=== PATIENT | male | born 1970 | race Caucasian/White ===

== ENCOUNTER 2024-06-21 12:37 | Observation (INO) | payer OTHER, SELFPAY ==
[2024-06-21] VITALS (10 sets, daily range): BP systolic 106–123; BP diastolic 73–94; PULSE 66–88; RESP 12–20; TEMP 36.6–37.2; O2SAT 90–95; BMI 26.6; BMI 26.5
--- NOTE | 2024-06-21 14:03 | ED.NAVMDI ---
HPI - Nausea/Vomiting/Diarrhea General Chief complaint: Nausea/Vomiting Stated complaint: Nausea coming from [facility] Time Seen by Provider: 06/21/24 12:39 History of Present Illness HPI Narrative: This 54-year-old male has a history of throat cancer and is undergoing chemotherapy currently. It is and unresectable tumor. He came from infusion clinic today and had denied IV fluids there. He states he has nausea and does not feel well. He has lost 13 kg over the last month or so. He does not eat much and reports generalized weakness. He arrives here with normal vital signs. Related Data Home Medications ?Medication ?Instructions ?Recorded ?Confirmed ondansetron HCl 8 mg tablet 8 mg PO Q8H PRN 04/14/24 06/21/24 polyethylene glycol 3350 17 gram 17 g PO QDAY PRN 04/14/24 06/07/24 oral powder packet (Miralax) prochlorperazine maleate 10 mg 10 mg PO Q8H PRN 04/14/24 05/31/24 tablet oxycodone 5 mg tablet 5 mg PO Q4-6H PRN 05/20/24 06/21/24 Previous Rx's ?Medication ?Instructions ?Recorded potassium chloride 20 mEq 20 meq PO QDAY #7 tabs 06/06/24 tablet,extended release Allergies Allergy/AdvReac Type Severity Reaction Status Date / Time No Known Drug Allergies Allergy Verified 06/21/24 12:51 Review of Systems Status of ROS: Reports: 10 or more systems reviewed and unremarkable except as noted in History and below Narrative: Constitutional: No fevers, no weight gain or loss. Eyes: No discharge. No vision changes. HENT: No congestion, no sore throat, no ear pain. Cardiovascular: No chest pain, no palpitations. Respiratory: No shortness of breath, no wheezes, no cough. Gastrointestinal: No abdominal pain, no diarrhea. Genitourinary: No dysuria, no hematuria. Musculoskeletal: Normal range of motion. Skin: No rashes, no pruritis. Neurological: No dizziness, sensory change, speech change. Generalized weakness. Endo/Heme/Allergies: No bruising or bleeding. No polydipsia. Pysch: no suicidality, no anxiety, no insomnia. All other systems reviewed and are negative. [facility] Medical History (Updated 06/21/24 @ 15:19 by Nav Ortiz MD) Sleep apnea ?G47.30 - Sleep apnea, unspecified (ICD-10) Diverticulosis ?K57.90 - Diverticulosis of intestine, part unspecified, without perforation or abscess without bleeding (ICD-10) HTN (hypertension) ?I10 - Essential (primary) hypertension (ICD-10) Cancer of oropharynx ?C10.9 - Malignant neoplasm of oropharynx, unspecified (ICD-10) Surgical History (Updated 06/01/24 @ 14:05 by Emeli Koo APRN) H/O hand surgery ?Z98.890 - Other specified postprocedural states (ICD-10) History of colon surgery ?Z98.890 - Other specified postprocedural states (ICD-10) Social History Smoking Status: Former smoker Non-prescribed substance use: denies use Exam Narrative: Exam Narrative: Constitutional: No acute distress. HEENT: Normocephalic, atraumatic. Neck: Normal range of motion. Nontender. Supple. Heart: Regular. No murmurs. Normal rate. Intact distal pulses. Lungs: Clear to auscultation. No chest discomfort. No wheezes, rhonchi, or rales. Abdomen: Normal bowel sounds. Nontender. No rebound tenderness. Genitalia: Deferred. Back: No midline tenderness. Normal range of motion. Extremities: Normal range of motion. No injury. Skin: Intact. No rash. Warm. No erythema or pallor. Neurologic: No altered sensation. No weakness. Alert and oriented. Psychiatric: No suicidality. No anxiety or depression. No insomnia. Nursing notes and vitals signs are reviewed. Const: Vital Signs, click to edit/add: Vital Signs - 24 hr 06/21/24 12:47 06/21/24 14:17 Temperature 97.9 F Pulse Rate [Pulse Oximeter] 80 80 Respiratory Rate 12 14 Blood Pressure [Ri ght Upper Arm] 115/80 Pulse Oximetry 93 94 Oxygen Delivery Me thod Room Air Room Air Course Vital Signs Vital signs: Initial Vital Signs Temperature 97.9 F 06/21/24 12:47 Temperature Source Temporal Artery Scan 06/21/24 12:47 Pulse Rate 80 06/21/24 12:47 Respiratory Rate 12 06/21/24 12:47 Blood Pressure 115/80 06/21/24 12:47 Blood Pressure Mean 91 06/21/24 12:47 Blood Pressure Position Sitting 06/21/24 12:47 Pulse Oximetry 93 06/21/24 12:47 Oxygen Delivery Method Room Air 06/21/24 12:47 Vital Signs Temperature 97.9 F 06/21/24 12:47 Pulse Rate 80 06/21/24 12:47 Respiratory Rate 12 06/21/24 12:47 Blood Pressure 115/80 06/21/24 12:47 Pulse Oximetry 93 06/21/24 12:47 Oxygen Delivery Method Room Air 06/21/24 12:47 Temperature 97.9 F 06/21/24 12:47 Pulse Rate 80 06/21/24 14:17 Respiratory Rate 14 06/21/24 14:17 Blood Pressure 115/80 06/21/24 12:47 Pulse Oximetry 94 06/21/24 14:17 Oxygen Delivery Method Room Air 06/21/24 14:17 Medications Administered Medications: Discontinued Medications Generic Name Dose Route Start Last Admin Trade Name Freq PRN Reason Stop Dose Admin Dexamethasone 10 mg 06/21/24 13:56 06/21/24 14:10 Dexamethasone 4 Mg/Ml Vial IV 06/21/24 13:57 10 mg ONCE ONE Administration Hydromorphone HCl 0.5 mg 06/21/24 13:56 06/21/24 14:14 Hydromorphone 0.5 Mg/0.5 Ml Inj IVP 06/21/24 13:57 0.5 mg ONCE ONE Administration Hydromorphone HCl 0.5 mg 06/21/24 14:55 06/21/24 15:13 Hydromorphone 0.5 Mg/0.5 Ml Inj IVP 06/21/24 14:56 0.5 mg ONCE ONE Administration Dextrose/Sodium Chloride 1,000 mls @ 1,000 mls/hr 06/21/24 13:56 06/21/24 14:08 5 % Dextrose/0.45% Sod Chlor IV 06/21/24 14:55 1,000 mls/hr .Q1H ONE Administration Ondansetron HCl 4 mg 06/21/24 13:56 06/21/24 14:13 Ondansetron 2 Mg/Ml Inj IVP 06/21/24 13:57 4 mg ONCE ONE Administration Potassium Chloride 20 meq 06/21/24 14:34 06/21/24 15:04 Potassium Chloride 10 Meq Capsule Er PO 06/21/24 14:35 Not Given ONCE ONE MDM - Nausea/Vomiting/Diarrhea MDM Narrative Medical decision making narrative: This patient has throat cancer and reports increased weakness today and generalized malaise. He was taking a fentanyl patch and discontinued that today and took OxyContin instead. An IV was established here where he did receive Dilaudid 0.5 mg. This was not sufficient to manage his pain and so another dose was given. The patient also received a L of D5 half-normal saline and labs are acquired. His potassium returns a bit low at 3.0. He did not want to take any oral potassium. The patient is requesting admission into the hospital least overnight because of these symptoms. I did speak with Dr. Jacobo who agrees with this plan. Lab Data Labs: Lab Results 06/21/24 Range/Units 13:55 WBC 3.60 L (4.50-11.00) K/uL RBC 3.77 L (4.30-5.90) m/uL Hgb 11.7 L (13.5-17.5) gm/dL Hct 34.4 L (37.0-53.0) % MCV 91 (80-100) fL MCH 31 (26-34) pg MCHC 34 (32-36) gm/dL RDW Coeff of Joceline 13.6 (11.5-15.5) % Plt Count 157 (140-440) K/uL Neut % (Auto) 79.1 H (42.0-72.0) % Lymph % (Auto) 5.3 L (20-44) % Reynolds % (Auto) 13.1 H (0.0-11.0) % Eos % (Auto) 0.8 (0.0-7.0) % Baso % (Auto) 0.6 (0.0-3.0) % Neut # (Auto) 2.80 (1.7-7.0) K/uL Lymph # (Auto) 0.20 L (0.90-2.90) K/uL Reynolds # (Auto) 0.50 (0.00-0.90) K/UL Eos # (Auto) 0.00 (0.00-0.50) K/uL Baso # (Auto) 0.00 (0.00-0.30) K/uL Abs Immat Gran (auto) 0.00 (0.00-0.30) K/uL Imm/Tot Granulo (auto) 1.1 % Sodium 137 (135-149) mmol/L Potassium 3.0 L (3.6-5.1) mmol/L Chloride 94 L (96-114) mmol/L Carbon Dioxide 30 (20-32) mmol/L Anion Gap 13 (7-15) mEq/L BUN 18 (7-30) mg/dL Creatinine 0.8 (0.5-1.5) mg/dL Estimated Creat Clear 106.79 Estimated GFR 106 ml/min Glucose 83 (60-115) mg/dL Calcium 8.9 (8.4-10.6) mg/dL Discharge Plan 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 do not crush tablet. ondansetron HCl 8 mg tablet 8 mg PO Q8H PRN polyethylene glycol 3350 [Miralax] 17 gram powder in packet 17 g PO QDAY PRN Hold Instructions: NOT USING AT THIS TIME prochlorperazine maleate 10 mg tablet 10 mg PO Q8H PRN oxycodone 5 mg tablet 5 mg PO Q4-6H PRN Follow Up/Referrals: Provider,Not a Local [Primary Care Provider] -
[2024-06-21] MEDS: 5 % DEXTROSE/0.45% SOD CHLOR 1,000 ML 1000 ML IV (14:08)
[2024-06-21] MEDS: dexAMETHasone 4 MG/ML VIAL 10 MG IV (14:10)
[2024-06-21] MEDS: ONDANSETRON 2 MG/ML inj 4 MG IVP (14:13)
[2024-06-21] MEDS: HYDROmorphone 0.5 mg/0.5 ml inj IVP ×7 (14:14→21:52)
[2024-06-21 14:22] LABS: Chloride* 94 mmol/L (96-114)
[2024-06-21 14:23] LABS: Sodium* 137 mmol/L (135-149)
[2024-06-21 14:25] LABS: Creatinine* 0.8 mg/dL (0.5-1.5); Est. Creatinine Clearance* 106.79; Estimated Glomerular Filt Rate 106 ml/min
[2024-06-21 14:26] LABS: Anion Gap 13 mEq/L (7-15); Basophils Percent Auto 0.6 % (0.0-3.0); Blood Urea Nitrogen* 18 mg/dL (7-30); Calcium* 8.9 mg/dL (8.4-10.6); Carbon Dioxide* 30 mmol/L (20-32); Eosinophils Percent Auto 0.8 % (0.0-7.0); Glucose* 83 mg/dL (60-115); Hematocrit 34.4 % (37.0-53.0); Hemoglobin* 11.7 gm/dL (13.5-17.5); Immature Granulocytes Pct Auto 1.1 %; Lymphocytes Percent Auto 5.3 % (20-44); Mean Corpuscular HGB Conc 34 gm/dL (32-36); Mean Corpuscular Hemoglobin 31 pg (26-34); Mean Corpuscular Volume 91 fL (80-100); Monocytes Percent Auto 13.1 % (0.0-11.0); Neutrophils Percent Auto 79.1 % (42.0-72.0); Platelet Count* 157 K/uL (140-440); RDW Coefficient of Variation % 13.6 % (11.5-15.5); Red Blood Count 3.77 m/uL (4.30-5.90)
[2024-06-21 14:28] LABS: Slide Review Reflex No
[2024-06-21] MEDS: POTASSIUM CHLORIDE 10 MEQ/100 ML PIGGYBACK 100 MEQ IVPB (17:38)
[2024-06-21] MEDS: 0.9 % SODIUM CH + KCL 20 mEq/L 1,000 ML 125 ML IV (17:38)
[2024-06-21] MEDS: OXYCODONE 5 MG TABLET PO (17:46)
[2024-06-21] MEDS: ONDANSETRON ODT 4 MG TAB 8 MG PO (17:48)
[2024-06-21 18:31] LABS: Magnesium* 1.7 mg/dL (1.5-2.6); Phosphorus* 3.9 mg/dL (2.5-4.5)
[2024-06-21] MEDS: POTASSIUM CHLORIDE 10 MEQ/100 ML PIGGYBACK 50 MEQ IVPB (18:49)
--- NOTE | 2024-06-21 19:13 | PC.NURSE ---
End of Shift: Patient unpleasant upon admission, but since then has became nicer. Patient vitally stable, lungs clear, BS WNL, IV running fluids at 125. Patient independent in room. Patient rates throat pain 8-10, 10 mg of oxy given once and 1mg of dilauded given x3. Patient currently on 0.5 L NC in low 90's and patient desats on and off as low as 83%. Patient declines all other pain meds other than oxy and dilauded, as he can't swallow anything more than oxy. Four mg of zophran given for nausea. Tele=NSR.
--- NOTE | 2024-06-21 19:34 | P.IMHP_ITS ---
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 His is a PA at [employer] and is here with him today. She helps to give history. She tells me that he has not eaten anything for several weeks and has been only drinking water and some Gatorade. He has lost 13 kg in the last month. I note that his weight on 05/03/2024 was 103 kg. Today his weight is 81 kg. He says that he does get in a small cup of yogurt every morning, but that is the only food that he eats for the whole day. He knows that he needs nutrition to help him heal and to feel well, but he just can not think about eating because he has too much pain. He recently started a fentanyl patch at 50 mcg, but did not receive much pain control from this and so was increased to 75 mcg. He only tolerated that for about 24 hours and then took everything off because he did not like how the 75 mcg patch was making him feel. He is adamant that he will not agree to starting fentanyl ever again. Since taking that off he has been feeling more and more painful despite continuing to use oral oxycodone. He is having trouble swallowing because it is so painful to do so. He has also become weaker in the last few days. His tells me that he has been somewhat confused in the last few days. Nadeem denies this. As far as treatment for cancer goes, he is finished with chemo radiation and will wait 6 weeks before getting reimaging. Review of Systems Status of ROS: Reports: 10 or more systems reviewed and unremarkable except as noted in History and below [facility] Medical History (Updated 06/22/24 @ 00:21 by Chloé Jacobo MD) Sleep apnea ?G47.30 - Sleep apnea, unspecified (ICD-10) Diverticulosis ?K57.90 - Diverticulosis of intestine, part unspecified, without perforation or abscess without bleeding (ICD-10) HTN (hypertension) ?I10 - Essential (primary) hypertension (ICD-10) Cancer of oropharynx ?C10.9 - Malignant neoplasm of oropharynx, unspecified (ICD-10) Surgical History (Updated 06/21/24 @ 19:38 by Chloé Jacobo MD) H/O hand surgery ?Z98.890 - Other specified postprocedural states (ICD-10) History of colon surgery ?Z98.890 - Other specified postprocedural states (ICD-10) Social History (Updated 06/21/24 @ 19:38 by Chloé Jacobo MD) Narrative: , his , Amanda, is here with him today and helps to give a history. Removed history of tobacco use. Denies alcohol use. Denies illicit drug use. What is your current living situation?: I presently have a place to live Problems where you live: no known problems Problems where you live details: none In the past 12 months, utilities in danger of being shut off: no In past 12 months, lack of transportation kept you from medical appts, meetings, work, or getting things needed for daily living: no In the past 12 mos, have been you worried that your food would run out before you had money to buy more?: never true In the past 12 mos, the food you bought just didn't last and you didn't have money to buy more?: never true Highest level of school completed/degree received: high school graduate Smoking Status: Former smoker How often do you have a drink containing alcohol: never AUDIT-C Alcohol total score: 0 Non-prescribed substance use: denies use Caffeine: No How often does anyone, including family, friends and others, physically hurt you : never How often does anyone, including family, friends and others, insult or talk down to you: never How often does anyone, including family, friends and others, threaten you with harm: never How often does anyone, including family, friends and others, scream or curse at you: never service: No Meds Home Medications and Allergies Home Medications ?Medication ?Instructions ?Recorded ?Confirmed ?Type ondansetron HCl 8 mg tablet 8 mg PO Q8H PRN 04/14/24 06/21/24 History prochlorperazine maleate 10 mg 10 mg PO Q6H PRN 04/14/24 06/21/24 History tablet oxycodone 5 mg tablet 5 - 10 mg PO Q4-6H PRN 05/20/24 06/21/24 History Allergies Allergy/AdvReac Type Severity Reaction Status Date / Time No Known Drug Allergies Allergy Verified 06/21/24 12:51 Exam Narrative: Exam Narrative: General: No acute distress. Eyes are closed, but he is awake, alert, oriented. Following commands, does open his eyes upon command and sometimes spontaneously to look at the while I am talking with him or examining him, but mostly keeps them closed. HEENT: Normocephalic atraumatic, pupils equally round and reactive to light and accommodation. Oropharynx patches of large flat ulcerations and ecchymosis. No white patches or induration. No exudate. Mucous membranes are dry. No cervical lymphadenopathy, thyromegaly or carotid bruits. No JVD. Cardiovascular: Regular rate and rhythm. No murmurs, gallops, or rubs. Chest: No increased work of breathing. Clear to auscultation bilaterally. No crackles or wheezes. Abdomen: Bowel sounds present. Soft, nondistended, nontender. No hepatosplenomegaly or masses. Extremities: No edema, no cyanosis or clubbing. Skin: Radiation dermatitis on the skin folds of the neck anteriorly. No jaundice, no pallor, no other rashes on visible skin. Neuro: No facial droop. Const: Vital Signs, click to edit/add: Vital Signs - 24 hr 06/21/24 12:47 06/21/24 14:17 06/21/24 15:20 Temperature 97.9 F Pulse Rate [Pulse Oximeter] 80 80 88 Respiratory Rate 12 14 14 Blood Pressure [Le ft Arm] Blood Pressure [Ri ght Upper Arm] 115/80 123/83 Pulse Oximetry 93 94 92 Oxygen Delivery Me thod Room Air Room Air Room Air 06/21/24 15:53 06/21/24 16:20 06/21/24 16:38 Temperature 98.9 F Pulse Rate [Pulse Oximeter] 76 74 Respiratory Rate 20 Blood Pressure [Le ft Arm] 106/73 Blood Pressure [Ri ght Upper Arm] Pulse Oximetry 92 92 92 Oxygen Delivery Il thod Room Air Room Air 06/21/24 17:52 Temperature Pulse Rate [Pulse Oximeter] Respiratory Rate Blood Pressure [Le ft Arm] Blood Pressure [Ri ght Upper Arm] Pulse Oximetry 90 Oxygen Delivery Il thod Hospitalist - H&P: Result Labs Labs: Short CBC 06/21/24 Range/Units 13:55 WBC 3.60 L (4.50-11.00) K/uL Hgb 11.7 L (13.5-17.5) gm/dL Hct 34.4 L (37.0-53.0) % Plt Count 157 (140-440) K/uL [facility] 06/21/24 13:55 Sodium 137 Potassium 3.0 L Chloride 94 L Carbon Dioxide 30 BUN 18 Creatinine 0.8 Glucose 83 Calcium 8.9 Assessment and Plan Assessment and plan (1) Intractable pain: Problem comment: - secondary to throat cancer and recent radiation treatment. I think he would benefit from a long-acting opioid, but he does not want to do anything like that considering his recent experience with fentanyl. 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 Will treat with magic mouthwash, omeprazole, acetaminophen, ibuprofen, oxycodone, and hydromorphone for breakthrough pain. He also got dexamethasone in the emergency department. Status: Acute (4) Radiation dermatitis: Problem comment: Neck Status: Acute (5) Nausea & vomiting: Problem comment: - secondary to chemotherapy - he got dexamethasone in the emergency department and I will continue with as needed ondansetron and prochlorperazine. Will also add omeprazole. Status: Acute (6) Dehydration: Problem comment: - he got fluid bolus in the emergency department and I have continued with maintenance fluids. Encourage oral intake. Status: Acute (7) Hypokalemia: Problem comment: Give potassium replacement. I note magnesium today is 1.7. Recheck in the morning. Status: Acute (8) Leukopenia due to antineoplastic chemotherapy: Problem comment: Monitor. Status: Acute (9) Anemia due to antineoplastic agent: Problem comment: No indication for transfusion at this time. Monitor. Status: Acute (10) Weakness: Problem comment: I think this is likely secondary to dehydration and protein calorie malnutrition. I have encouraged using nutritional supplementation, but patient is hesitant to do so. He also declines nutritional consultation or feeding tube. He has a history of partial colon resection and says that there was so much mesh in his belly that he is worried about getting a PEG. Status: Acute (11) Weight loss: Problem comment: - suspect this is multifactorial due to cancer and markedly decreased oral intake - I discussed nutrition with him and how he will need protein, electrolytes, and calories to heal and to maintain strength. He was still unwilling to increase his oral intake at this time due to pain and feeling generally unwell. - start nutrition supplements. Patient that he would do better with clear liquids, so I ordered Ensure Clear Status: Acute
[2024-06-21] MEDS: EMOLLIENT BASE CREAM 1 APPLIC TOPICAL (20:29)
[2024-06-21] MEDS: SODIUM CHLORIDE 0.9 % (FLUSH) 10 ML SYRINGE 5 ML IVF ×2 (20:30→21:52)
[2024-06-22] MEDS: HYDROmorphone 0.5 mg/0.5 ml inj IVP ×5 (02:17→07:53)
[2024-06-22] MEDS: SODIUM CHLORIDE 0.9 % (FLUSH) 10 ML SYRINGE 5 ML IVF ×3 (02:17→04:37)
[2024-06-22] MEDS: ONDANSETRON ODT 4 MG TAB 8 MG PO (02:18)
[2024-06-22] MEDS: 0.9 % SODIUM CH + KCL 20 mEq/L 1,000 ML 125 ML IV ×2 (02:27→08:57)
[2024-06-22] MEDS: OXYCODONE 5 MG TABLET PO (02:54)
[2024-06-22 03:00] VITALS: BP 127/87; PULSE 62; RESP 20; TEMP 36.4; O2SAT 95
[2024-06-22] MEDS: PROCHLORPERAZINE 10 MG TABLET PO (04:36)
--- NOTE | 2024-06-22 04:52 | PC.NURSE ---
Shift note: Pt continue to complain of throat pain of 8t
--- NOTE | 2024-06-22 04:59 | PC.NURSE ---
Addendum entered by Dmitri Hall RN 06/22/24 05:42: Pt want always want to take deluded 1mg and oxycodone 10mg together whenever he request for pain medication. Pt educated on the effect of taking both medications at the dose together but appeared not understand. MD and charge nurse informed. MD asked to spaced the at least 15 minutes apart when due to be given. Original Note: Shift note: Pt continue to complain of throat pain of 8-10. Pain and burning worse when swallowing. He consistently requested requested PRN medication at least every 2 hours. Pt is alert and oriented. Pt has been on 0.5L oxygen but O2 desaturate to 80s when pt sleep. Ambulated with SBA. At 0230, pt requested for ensure but was drank less that 20ml. He said the ensure burn his throat.
[2024-06-22 06:32] LABS: Basophils Percent Auto 0.7 % (0.0-3.0); Eosinophils Percent Auto 0.7 % (0.0-7.0); Hemoglobin* 10.6 gm/dL (13.5-17.5); Immature Granulocytes Pct Auto 0.3 %; Lymphocytes Percent Auto 6.8 % (20-44); Mean Corpuscular HGB Conc 34 gm/dL (32-36); Mean Corpuscular Hemoglobin 31 pg (26-34); Mean Corpuscular Volume 92 fL (80-100); Monocytes Percent Auto 16.2 % (0.0-11.0); Neutrophils Percent Auto 75.3 % (42.0-72.0); Platelet Count* 127 K/uL (140-440); RDW Coefficient of Variation % 13.4 % (11.5-15.5); Red Blood Count 3.38 m/uL (4.30-5.90); White Blood Count* 2.96 K/uL (4.50-11.00)
[2024-06-22 06:35] LABS: Slide Review Reflex No
[2024-06-22 06:44] LABS: Chloride* 99 mmol/L (96-114)
[2024-06-22 06:45] LABS: Potassium* 3.9 mmol/L (3.6-5.1); Sodium* 135 mmol/L (135-149)
[2024-06-22 06:47] LABS: Creatinine* 0.7 mg/dL (0.5-1.5); Est. Creatinine Clearance* 122.04; Estimated Glomerular Filt Rate 110 ml/min
[2024-06-22 06:48] LABS: Anion Gap 8 mEq/L (7-15); Blood Urea Nitrogen* 17 mg/dL (7-30); Calcium* 8.6 mg/dL (8.4-10.6); Carbon Dioxide* 28 mmol/L (20-32); Glucose* 96 mg/dL (60-115)
[2024-06-22 07:00] VITALS: BP 124/90; PULSE 79; RESP 18; TEMP 37.2; O2SAT 98
[2024-06-22] MEDS: HYDROmorphone 0.5 mg/0.5 ml inj 1 MG IVP (09:25)
--- NOTE | 2024-06-22 09:40 | PM.DS1 ---
DS: Providers Provider Date of admission: 06/21/24 16:03 Primary care physician: Not a Local Provider Admitting Clinician: Chloé Jacobo MD Attending Physician on discharge: Vivi Singh MD DS: Diagnosis Discharge Diagnosis (1) Intractable pain: Status: Acute Problem details: - secondary to throat cancer and recent radiation treatment. I think he would benefit from a long-acting opioid, but he does not want to do anything like that considering his recent experience with fentanyl. 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 Will treat with magic mouthwash, omeprazole, acetaminophen, ibuprofen, oxycodone, and hydromorphone for breakthrough pain. He also got dexamethasone in the emergency department. (4) Radiation dermatitis: Status: Acute Problem details: Neck (5) Nausea & vomiting: Status: Acute Problem details: - secondary to chemotherapy - he got dexamethasone in the emergency department and I will continue with as needed ondansetron and prochlorperazine. Will also add omeprazole. (6) Dehydration: Status: Acute Problem details: - he got fluid bolus in the emergency department and I have continued with maintenance fluids. Encourage oral intake. (7) Hypokalemia: Status: Acute Problem details: Give potassium replacement. I note magnesium today is 1.7. Recheck in the morning. (8) Leukopenia due to antineoplastic chemotherapy: Status: Acute Problem details: Monitor. (9) Anemia due to antineoplastic agent: Status: Acute Problem details: No indication for transfusion at this time. Monitor. (10) Weakness: Status: Acute Problem details: I think this is likely secondary to dehydration and protein calorie malnutrition. I have encouraged using nutritional supplementation, but patient is hesitant to do so. He also declines nutritional consultation or feeding tube. He has a history of partial colon resection and says that there was so much mesh in his belly that he is worried about getting a PEG. (11) Weight loss: Status: Acute Problem details: - suspect this is multifactorial due to cancer and markedly decreased oral intake - I discussed nutrition with him and how he will need protein, electrolytes, and calories to heal and to maintain strength. He was still unwilling to increase his oral intake at this time due to pain and feeling generally unwell. - start nutrition supplements. Patient that he would do better with clear liquids, so I ordered Ensure Clear DS: Summary Time Spent with Patient Time attestation: Total time spent providing and/or coordinating discharge services: Exam Const: Vital Signs, click to edit/add: Vital Signs - 24 hr 06/21/24 12:47 06/21/24 14:17 06/21/24 15:20 Temperature 97.9 F Pulse Rate Pulse Rate [Pulse Oximeter] 80 80 88 Respiratory Rate 12 14 14 Blood Pressure [Le ft Arm] Blood Pressure [Ri ght Upper Arm] 115/80 123/83 Pulse Oximetry 93 94 92 Oxygen Delivery Me thod Room Air Room Air Room Air Oxygen Flow Rate 06/21/24 15:53 06/21/24 16:20 06/21/24 16:38 Temperature 98.9 F Pulse Rate Pulse Rate [Pulse Oximeter] 76 74 Respiratory Rate 20 Blood Pressure [Le ft Arm] 106/73 Blood Pressure [Ri ght Upper Arm] Pulse Oximetry 92 92 92 Oxygen Delivery Me thod Room Air Room Air Oxygen Flow Rate 06/21/24 17:52 06/21/24 19:00 06/21/24 22:47 Temperature 98 F 97.8 F Pulse Rate Pulse Rate [Pulse Oximeter] 75 66 Respiratory Rate 20 20 Blood Pressure [Le ft Arm] 122/94 H 117/85 Blood Pressure [Ri ght Upper Arm] Pulse Oximetry 90 95 93 Oxygen Delivery Me thod Nasal Cannula Nasal Cannula Oxygen Flow Rate 0.5 0.5 06/21/24 23:00 06/22/24 03:00 Temperature 97.6 F Pulse Rate 66 Pulse Rate [Pulse Oximeter] 62 Respiratory Rate 20 Blood Pressure [Le ft Arm] 127/87 Blood Pressure [Ri ght Upper Arm] Pulse Oximetry 95 Oxygen Delivery Me thod Nasal Cannula Oxygen Flow Rate 0.5 DS: Data Data Completed and Pending Labs on day of discharge: Labs from last 24 hours 06/22/24 06/21/24 06/21/24 06:15 17:09 13:55 WBC 2.96 L 3.60 L RBC 3.38 L 3.77 L Hgb 10.6 L 11.7 L Hct 31.0 L 34.4 L MCV 92 91 MCH 31 31 MCHC 34 34 RDW Coeff of Joceline 13.4 13.6 Plt Count 127 L 157 Neut % (Auto) 75.3 H 79.1 H Lymph % (Auto) 6.8 L 5.3 L [place] % (Auto) 16.2 H 13.1 H Eos % (Auto) 0.7 0.8 Baso % (Auto) 0.7 0.6 Neut # (Auto) 2.20 2.80 Lymph # (Auto) 0.20 L 0.20 L [place] # (Auto) 0.50 0.50 Eos # (Auto) 0.00 0.00 Baso # (Auto) 0.00 0.00 Abs Immat Gran (auto) 0.00 0.00 Imm/Tot Granulo (auto) 0.3 1.1 Sodium 135 137 Potassium 3.9 3.0 L Chloride 99 94 L Carbon Dioxide 28 30 Anion Gap 8 13 BUN 17 18 Creatinine 0.7 0.8 Estimated Creat Clear 122.04 106.79 Estimated GFR 110 106 Glucose 96 83 Calcium 8.6 8.9 Phosphorus 3.9 Magnesium 1.7 Lab Acknowledgement Test Added Discharge Plan Discharge Date of Admission: 06/21/24 16:03 Attending Physician on Admission: Chloé Jacobo Primary Care Provider: Provider,Not a Local Condition: Unchanged Discharge Medications: No Action ondansetron HCl 8 mg tablet 8 mg PO Q8H PRN prochlorperazine maleate 10 mg tablet 10 mg PO Q6H PRN oxycodone 5 mg tablet 5 - 10 mg PO Q4-6H PRN Follow Up Appointments: Provider,Not a Local [Primary Care Provider] -
--- NOTE | 2024-06-22 09:48 | PM.DS1 ---
DS: Providers Provider Date Seen: 06/22/24 Date of admission: 06/21/24 16:03 Primary care physician: Not a Local Provider Admitting Clinician: Chloé Jacobo MD Attending Physician on discharge: Florian Perez MD Date of Discharge: 06/22/24 DS: Summary Hospital Course Hospital Course: Nadeem Hannah is a 54 year old male with squamous cell carcinoma right oropharynx with lymph node involvement who finished concurrent chemo radiation with cisplatin this last week. His is a PA at [employer] and is here with him today. She helps to give history. She tells me that he has not eaten anything for several weeks and has been only drinking water and some Gatorade. He has lost 13 kg in the last month. I note that his weight on 05/03/2024 was 103 kg. Today his weight is 81 kg. He says that he does get in a small cup of yogurt every morning, but that is the only food that he eats for the whole day. He knows that he needs nutrition to help him heal and to feel well, but he just can not think about eating because he has too much pain. He recently started a fentanyl patch at 50 mcg, but did not receive much pain control from this and so was increased to 75 mcg. He only tolerated that for about 24 hours and then took everything off because he did not like how the 75 mcg patch was making him feel. He is adamant that he will not agree to starting fentanyl ever again. Since taking that off he has been feeling more and more painful despite continuing to use oral oxycodone. He is having trouble swallowing because it is so painful to do so. He has also become weaker in the last few days. His tells me that he has been somewhat confused in the last few days. Nadeem denies this. As far as treatment for cancer goes, he is finished with chemo radiation and will wait 6 weeks before getting reimaging. June 22: Patient has been receiving intravenous dilaudid overnight for pain control. He was informed of the need to transition to oral medication for pain control. He declined long-acting pain medication including fentanyl patch. He became quite angry with staff about a plan to transition from IV to oral medication. He walked out of the hospital after receiving 1 last dose of IV Dilaudid 1 mg. Status at Discharge Functional status at discharge: independent ambulation Overall status at discharge: patient is back to baseline Time Spent with Patient Time attestation: Total time spent providing and/or coordinating discharge services: Exam Narrative: Exam Narrative: Patient is sitting in bed and appears comfortable. When I walk into the room he begins yelling at me about the pain control plan. No further examination is done. Const: Vital Signs, click to edit/add: Vital Signs - 24 hr 06/21/24 12:47 06/21/24 14:17 06/21/24 15:20 Temperature 97.9 F Pulse Rate Pulse Rate [Pulse Oximeter] 80 80 88 Respiratory Rate 12 14 14 Blood Pressure [Le ft Arm] Blood Pressure [Ri ght Upper Arm] 115/80 123/83 Pulse Oximetry 93 94 92 Oxygen Delivery Me thod Room Air Room Air Room Air Oxygen Flow Rate 06/21/24 15:53 06/21/24 16:20 06/21/24 16:38 Temperature 98.9 F Pulse Rate Pulse Rate [Pulse Oximeter] 76 74 Respiratory Rate 20 Blood Pressure [Le ft Arm] 106/73 Blood Pressure [Ri ght Upper Arm] Pulse Oximetry 92 92 92 Oxygen Delivery Me thod Room Air Room Air Oxygen Flow Rate 06/21/24 17:52 06/21/24 19:00 06/21/24 22:47 Temperature 98 F 97.8 F Pulse Rate Pulse Rate [Pulse Oximeter] 75 66 Respiratory Rate 20 20 Blood Pressure [Le ft Arm] 122/94 H 117/85 Blood Pressure [Ri ght Upper Arm] Pulse Oximetry 90 95 93 Oxygen Delivery Me thod Nasal Cannula Nasal Cannula Oxygen Flow Rate 0.5 0.5 06/21/24 23:00 06/22/24 03:00 Temperature 97.6 F Pulse Rate 66 Pulse Rate [Pulse Oximeter] 62 Respiratory Rate 20 Blood Pressure [Le ft Arm] 127/87 Blood Pressure [Ri ght Upper Arm] Pulse Oximetry 95 Oxygen Delivery Me thod Nasal Cannula Oxygen Flow Rate 0.5 Documenting provider has reviewed patient's vital signs: yes DS: Data Data Completed and Pending Labs on day of discharge: Labs from last 24 hours 06/22/24 06/21/24 06/21/24 06:15 17:09 13:55 WBC 2.96 L 3.60 L RBC 3.38 L 3.77 L Hgb 10.6 L 11.7 L Hct 31.0 L 34.4 L MCV 92 91 MCH 31 31 MCHC 34 34 RDW Coeff of Joceline 13.4 13.6 Plt Count 127 L 157 Neut % (Auto) 75.3 H 79.1 H Lymph % (Auto) 6.8 L 5.3 L [place] % (Auto) 16.2 H 13.1 H Eos % (Auto) 0.7 0.8 Baso % (Auto) 0.7 0.6 Neut # (Auto) 2.20 2.80 Lymph # (Auto) 0.20 L 0.20 L [place] # (Auto) 0.50 0.50 Eos # (Auto) 0.00 0.00 Baso # (Auto) 0.00 0.00 Abs Immat Gran (auto) 0.00 0.00 Imm/Tot Granulo (auto) 0.3 1.1 Sodium 135 137 Potassium 3.9 3.0 L Chloride 99 94 L Carbon Dioxide 28 30 Anion Gap 8 13 BUN 17 18 Creatinine 0.7 0.8 Estimated Creat Clear 122.04 106.79 Estimated GFR 110 106 Glucose 96 83 Calcium 8.6 8.9 Phosphorus 3.9 Magnesium 1.7 Lab Acknowledgement Test Added Discharge Plan Discharge Disposition: Left Against Medical Advice Date of Admission: 06/21/24 16:03 Attending Provider on Discharge: Chon Perez Primary Care Provider: Provider,Not a Local Condition: Unchanged Discharge Medications: Continued ondansetron HCl 8 mg tablet 8 mg PO Q8H PRN prochlorperazine maleate 10 mg tablet 10 mg PO Q6H PRN oxycodone 5 mg tablet 5 - 10 mg PO Q4-6H PRN Discharge Orders: Discharge Order (Routine); Ordered 06/22/24 Ordered By: Chon Perez Discharge Comments: Patient left without discussing discharge plan or follow-up plan.
--- NOTE | 2024-06-22 11:50 | NUTR.NU ---
Patient left AMA before nutrition assessment could be completed related to significant weight loss recently.
--- NOTE | 2024-06-22 11:55 | PC.NURSE ---
Objective assessment [id number]: When mortgage underwriter entered room, Pt demanded IV pain medication and stated that his regimen of taking oxycodone was not the same as he was taking at home. Doctor Singh entered the room upon discussion asking for understanding of Pts regimen at home and explained the in hospital medication regimen which explained that the Pt would be transitioned to oral pain medication following the last IV dilaudid dose which was given @ 0753. Pt grew hostile and become verbally aggressive stating no you listen to me for once. I didn't know I needed a intrusion analyst for my own doctor. Do you even know how to do your job? Clearly you didn't look at the chart before you came in. This is just ridiculous, no one is doing their job. I shouldn't know more than my doctor. At approximately 0840, Pt called and asked for pain medication, oxycodone was brought to Pt. Pt refused to take oxycodone and demanded dilaudid IV. Kvng Little and Doctor Perez went into see patient and explained that they would give him one final dose of dilaudid and then it would strictly be oral pain control medication. Dilauded IV given @ 0925, Pt immediately got dressed and left against medical advice. Pt allowed us to remove his IV, but refused to sign the AMA form.
== END 2024-06-22 09:32 | disposition left against medical advice (07) ==
LOC: ED 15:19 → MEDSURG 16:05
PROVIDERS: Admitting Provider Family Medicine; Emergency Provider Emergency Medicine Emergency Medical Services; Visit Provider Family Medicine
DX: C10.9 Malignant neoplasm of oropharynx, unspecified (principal); D64.81 Anemia due to antineoplastic chemotherapy; D70.1 Agranulocytosis secondary to cancer chemotherapy; E86.0 Dehydration; M62.81 Muscle weakness (generalized); E46 Unspecified protein-calorie malnutrition; R13.10 Dysphagia, unspecified; K20.80 Other esophagitis without bleeding; L58.9 Radiodermatitis, unspecified; C09.9 Malignant neoplasm of tonsil, unspecified; R52 Pain, unspecified; R63.4 Abnormal weight loss; Z68.26 Body mass index [BMI] 26.0-26.9, adult; E87.6 Hypokalemia; R11.0 Nausea; R53.81 Other malaise; R11.10 Vomiting, unspecified; R41.0 Disorientation, unspecified; G47.30 Sleep apnea, unspecified; Z87.891 Personal history of nicotine dependence; Z90.49 Acquired absence of other specified parts of digestive tract; Z98.890 Other specified postprocedural states; Z78.9 Other specified health status; Z79.899 Other long term (current) drug therapy
CPT/HCPCS: 36415; 80048; 83735; 84100; 85025; 96365; 96366; 96367; 96372; 96375; 96376; 99284; 99285; A9270; G0378; J1100; J1170; J2405; J3480; S5010

== ENCOUNTER 2024-06-24 09:00 | Outpatient (RCR) | payer OTHER, SELFPAY ==
--- NOTE | 2024-04-15 08:56 | ONC.NURNOTE ---
Patient called with start date appts for 05/03/24 at 09- lab same day- bring his home antiemetics and call if he needs refills prior to starting his cisplatin treatments provider appt needed week of 05/09 and weekly appts for treatment on Tuesdays pending Rad Onc schedule Sim is 04/18
--- NOTE | 2024-04-15 11:45 | URNOTE ---
Addendum entered by Marita Mon RN 04/19/24 15:15: Request received for authorization for Aloxi ([id number]). Prior authorization is approved per Martin on behalf of [employer] Ref#[id number], Aloxi 250.00 mcg, 6 doses total of 1500.00mcg, date range 05/02/2024 to 10/28/2024. Original Note: Per [facility] on behalf of [employer], prior auth is not required for Cisplatin ([id number]) and Emend ([id number]). Prior auth for Aloxi ([id number]) is pending
[2024-05-03 09:08] VITALS: BP 132/82; PULSE 70; RESP 17; TEMP 36.2; O2SAT 97
[2024-05-03 09:38] LABS: Basophils Percent Auto 0.5 % (0.0-3.0); Eosinophils Percent Auto 1.9 % (0.0-7.0); Hematocrit 38.7 % (37.0-53.0); Hemoglobin* 13.3 gm/dL (13.5-17.5); Immature Granulocytes Pct Auto 0.5 %; Lymphocytes Percent Auto 26.8 % (20-44); Mean Corpuscular HGB Conc 34 gm/dL (32-36); Mean Corpuscular Hemoglobin 30 pg (26-34); Mean Corpuscular Volume 88 fL (80-100); Neutrophils Percent Auto 62.3 % (42.0-72.0); Platelet Count* 136 K/uL (140-440); RDW Coefficient of Variation % 14.8 % (11.5-15.5); Red Blood Count 4.38 m/uL (4.30-5.90); White Blood Count* 3.73 K/uL (4.50-11.00)
[2024-05-03 09:41] LABS: Slide Review Reflex No
[2024-05-03 09:50] LABS: Chloride* 109 mmol/L (96-114); Sodium* 139 mmol/L (135-149)
[2024-05-03 09:51] LABS: Potassium* 4.2 mmol/L (3.6-5.1)
[2024-05-03 09:53] LABS: Alanine Aminotransferase* 72 U/L (4-50); Anion Gap 7 mEq/L (7-15); Aspartate Amino Transferase* 39 U/L (12-35); Bilirubin Total* 0.5 mg/dL (0.1-1.5); Blood Urea Nitrogen* 11 mg/dL (7-30); Carbon Dioxide* 23 mmol/L (20-32); Creatinine* 0.6 mg/dL (0.5-1.5); Est. Creatinine Clearance* 133.12; Estimated Glomerular Filt Rate 115 ml/min; Glucose* 132 mg/dL (60-115); Total Protein* 7.2 g/dL (6.0-8.3)
[2024-05-03 09:54] LABS: Calcium* 8.7 mg/dL (8.4-10.6); Magnesium* 1.9 mg/dL (1.5-2.6)
[2024-05-03 09:55] LABS: Alkaline Phosphatase* 121 U/L (40-150)
[2024-05-03] MEDS: MAGNESIUM SULFATE 2 GM, POTASSIUM CHLORIDE 10 MEQ in 0.9 % SODIUM CHLORIDE 1000 ml 1,00... IV (10:10)
[2024-05-03] MEDS: PALONOSETRON 0.25 MG/5 ML inj IVP (11:24)
[2024-05-03] MEDS: dexAMETHasone 10 MG in 0.9 % SODIUM CHLORIDE 100 ml 100 ML 404 MG IVPB (11:24)
[2024-05-03] MEDS: FOSAPREPITANT 150 MG inj 150 MG in 0.9 % SODIUM CHLORIDE 250 ml 250 ML 510 MG IVPB (11:53)
[2024-05-03] MEDS: SODIUM CHLORIDE 0.9 % (FLUSH) 10 ML SYRINGE IVF (13:02)
[2024-05-03] MEDS: 0.9 % SODIUM CHLORIDE 250 ml IV (13:02)
--- NOTE | 2024-05-03 13:21 | ONC.NURNOTE ---
firsst time with Ciplatin. bambi. well. teaching and calender sent home with pt. enc if antinausea meds dont help to call up. pt will be taking mag OTC to advoid low mag. per Sixto TREVIÑO advice.
--- NOTE | 2024-05-03 14:29 | ONC.NURNOTE ---
Addendum entered by Kia Mccormick RN 05/03/24 14:37: relevant consults dietitian - to be seen next week at Rad Onc SS- denied Rehab- patient declined- but discussed with Rad Onc- that they may want to readdress with patient- may be appropiate for PT/OT for head and neck radiation Original Note: New chemotherapy teaching completed with patient previously received carbo/Taxol briefly reviewed self care, managing fever, after hours management, taking antiemetics, calling with concerns, reviewed contents of the new chemo binder reviewed side effects of cisplat- emphasized importance of hydration, control of nausea, calling with N/V, managing low Mg, potential for ringing in ears discussed minimal 64 oz per day- 80 oz better questions addressed consents and YARED reviewed and signed
--- NOTE | 2024-05-03 14:34 | ONC.NURNOTE ---
PSDS=0 patient states no concerns and did not want to fill out the questionnaire discussed option of SS if anything changes
[2024-05-09 10:34] LABS: Basophils Absolute Auto 0.01 K/uL (0.00-0.30); Basophils Percent Auto 0.2 % (0.0-3.0); Eosinophils Absolute Auto 0.14 K/uL (0.00-0.50); Eosinophils Percent Auto 2.6 % (0.0-7.0); Hematocrit 40.8 % (37.0-53.0); Hemoglobin* 15.2 gm/dL (13.5-17.5); Immature Granulocytes Abs Auto 0.03 K/uL (0.00-0.30); Immature Granulocytes Pct Auto 0.6 %; Lymphocytes Percent Auto 18.9 % (20-44); Mean Corpuscular HGB Conc 37 gm/dL (32-36); Mean Corpuscular Hemoglobin 32 pg (26-34); Mean Corpuscular Volume 87 fL (80-100); Monocytes Percent Auto 5.9 % (0.0-11.0); Neutrophils Absolute Auto 3.89 K/uL (1.7-7.0); Neutrophils Percent Auto 71.8 % (42.0-72.0); Platelet Count* 224 K/uL (140-440); RDW Coefficient of Variation % 14.7 % (11.5-15.5); White Blood Count* 5.41 K/uL (4.50-11.00)
[2024-05-09 10:35] LABS: Slide Review Reflex No
[2024-05-09 10:52] LABS: Chloride* 108 mmol/L (96-114)
[2024-05-09 10:53] LABS: Albumin* 4.1 g/dL (3.3-5.0); Potassium* 4.1 mmol/L (3.6-5.1); Sodium* 139 mmol/L (135-149)
[2024-05-09 10:55] LABS: Anion Gap 14 mEq/L (7-15); Bilirubin Total* 0.3 mg/dL (0.1-1.5); Carbon Dioxide* 17 mmol/L (20-32); Creatinine* 0.7 mg/dL (0.5-1.5); Estimated Glomerular Filt Rate 110 ml/min
[2024-05-09 10:56] LABS: Alanine Aminotransferase* 57 U/L (4-50); Alkaline Phosphatase* 175 U/L (40-150); Aspartate Amino Transferase* 30 U/L (12-35); Blood Urea Nitrogen* 14 mg/dL (7-30); Calcium* 8.5 mg/dL (8.4-10.6); Glucose* 120 mg/dL (60-115); Total Protein* 7.4 g/dL (6.0-8.3)
[2024-05-10 09:40] VITALS: BP 134/98; PULSE 86; RESP 16; TEMP 36.5; O2SAT 97
[2024-05-10] MEDS: MAGNESIUM SULFATE 2 GM, POTASSIUM CHLORIDE 10 MEQ in 0.9 % SODIUM CHLORIDE 1000 ml 1,00... IV (10:15)
[2024-05-10] MEDS: 0.9 % SODIUM CHLORIDE 250 ml IV (10:15)
[2024-05-10] MEDS: dexAMETHasone 10 MG in 0.9 % SODIUM CHLORIDE 100 ml 100 ML 400 MG IVPB (11:36)
[2024-05-10] MEDS: FOSAPREPITANT 150 MG inj 150 MG in 0.9 % SODIUM CHLORIDE 250 ml 250 ML 510 MG IVPB (11:55)
[2024-05-10] MEDS: PALONOSETRON 0.25 MG/5 ML inj IVP (12:09)
[2024-05-10] MEDS: SODIUM CHLORIDE 0.9 % (FLUSH) 10 ML SYRINGE IVF (13:03)
[2024-05-16 09:34] LABS: Basophils Absolute Auto 0.03 K/uL (0.00-0.30); Basophils Percent Auto 0.4 % (0.0-3.0); Eosinophils Absolute Auto 0.09 K/uL (0.00-0.50); Eosinophils Percent Auto 1.3 % (0.0-7.0); Hemoglobin* 14.4 gm/dL (13.5-17.5); Immature Granulocytes Abs Auto 0.01 K/uL (0.00-0.30); Immature Granulocytes Pct Auto 0.1 %; Lymphocytes Percent Auto 7.9 % (20-44); Mean Corpuscular HGB Conc 34 gm/dL (32-36); Mean Corpuscular Hemoglobin 31 pg (26-34); Mean Corpuscular Volume 89 fL (80-100); Monocytes Percent Auto 6.1 % (0.0-11.0); Neutrophils Percent Auto 84.2 % (42.0-72.0); Platelet Count* 186 K/uL (140-440); RDW Coefficient of Variation % 14.6 % (11.5-15.5); Red Blood Count 4.72 m/uL (4.30-5.90)
[2024-05-16 09:37] LABS: Slide Review Reflex No
[2024-05-16 09:54] LABS: Albumin* 4.6 g/dL (3.3-5.0); Chloride* 103 mmol/L (96-114); Sodium* 137 mmol/L (135-149)
[2024-05-16 09:56] LABS: Anion Gap 9 mEq/L (7-15); Aspartate Amino Transferase* 30 U/L (12-35); Bilirubin Total* 0.7 mg/dL (0.1-1.5); Carbon Dioxide* 25 mmol/L (20-32); Creatinine* 0.8 mg/dL (0.5-1.5); Est. Creatinine Clearance* 99.84; Estimated Glomerular Filt Rate 106 ml/min
[2024-05-16 09:57] LABS: Alanine Aminotransferase* 49 U/L (4-50); Alkaline Phosphatase* 115 U/L (40-150); Blood Urea Nitrogen* 15 mg/dL (7-30); Calcium* 9.2 mg/dL (8.4-10.6); Glucose* 160 mg/dL (60-115)
--- NOTE | 2024-05-17 07:56 | ONC.NURNOTE ---
05/04 called and left a message with Nadeem to call us back and let us know how he is feeling after his first Cisplatin dose.
[2024-05-17] MEDS: MAGNESIUM SULFATE 2 GM, POTASSIUM CHLORIDE 10 MEQ in 0.9 % SODIUM CHLORIDE 1000 ml 1,00... IV (10:09)
[2024-05-17] MEDS: dexAMETHasone 10 MG in 0.9 % SODIUM CHLORIDE 100 ml 100 ML 404 MG IVPB (11:28)
[2024-05-17] MEDS: PALONOSETRON 0.25 MG/5 ML inj IVP (11:28)
[2024-05-17] MEDS: 0.9 % SODIUM CHLORIDE 250 ml IV (11:29)
[2024-05-17] MEDS: SODIUM CHLORIDE 0.9 % (FLUSH) 10 ML SYRINGE IVF (11:29)
[2024-05-17] MEDS: FOSAPREPITANT 150 MG inj 150 MG in 0.9 % SODIUM CHLORIDE 250 ml 250 ML 510 MG IVPB (11:47)
--- NOTE | 2024-05-17 13:11 | ONC.NURNOTE ---
Addendum entered by Sandi Gloria RN 05/17/24 13:22: Nadeem states throat pain from radiation is a 10. states some relief with pain meds. states he will be talking to his DRNano tomorrow about needing better pain control. Original Note: Nadeem reports his rt arm gets numb at times while cisplatin was infusing. checked site. checked rt /lt arm . no inflatration noticed. repositioned am on soft blankets vs hard arm rest. numbness resolved.
[2024-05-20 09:29] VITALS: BP 136/90; PULSE 72; RESP 17; TEMP 36.4; O2SAT 97
[2024-05-20] MEDS: 0.9 % SODIUM CHLORIDE 1000 ml 1,000 ML IV (09:56)
[2024-05-20] MEDS: SODIUM CHLORIDE 0.9 % (FLUSH) 10 ML SYRINGE IVF (09:56)
[2024-05-23 09:30] LABS: Basophils Absolute Auto 0.02 K/uL (0.00-0.30); Basophils Percent Auto 0.4 % (0.0-3.0); Eosinophils Absolute Auto 0.07 K/uL (0.00-0.50); Eosinophils Percent Auto 1.5 % (0.0-7.0); Hematocrit 36.8 % (37.0-53.0); Hemoglobin* 12.6 gm/dL (13.5-17.5); Immature Granulocytes Abs Auto 0.01 K/uL (0.00-0.30); Immature Granulocytes Pct Auto 0.2 %; Lymphocytes Percent Auto 9.2 % (20-44); Mean Corpuscular HGB Conc 34 gm/dL (32-36); Mean Corpuscular Hemoglobin 31 pg (26-34); Mean Corpuscular Volume 90 fL (80-100); Monocytes Percent Auto 9.8 % (0.0-11.0); Neutrophils Percent Auto 78.9 % (42.0-72.0); Platelet Count* 163 K/uL (140-440); RDW Coefficient of Variation % 13.5 % (11.5-15.5); White Blood Count* 4.57 K/uL (4.50-11.00)
[2024-05-23 09:34] LABS: Slide Review Reflex No
[2024-05-23 09:40] LABS: Albumin* 4.5 g/dL (3.3-5.0); Chloride* 104 mmol/L (96-114); Sodium* 138 mmol/L (135-149)
[2024-05-23 09:41] LABS: Potassium* 4.3 mmol/L (3.6-5.1)
[2024-05-23 09:42] LABS: Creatinine* 0.8 mg/dL (0.5-1.5); Est. Creatinine Clearance* 99.84; Estimated Glomerular Filt Rate 106 ml/min
[2024-05-23 09:43] LABS: Alanine Aminotransferase* 46 U/L (4-50); Alkaline Phosphatase* 98 U/L (40-150); Anion Gap 7 mEq/L (7-15); Aspartate Amino Transferase* 36 U/L (12-35); Bilirubin Total* 0.6 mg/dL (0.1-1.5); Blood Urea Nitrogen* 14 mg/dL (7-30); Carbon Dioxide* 27 mmol/L (20-32); Glucose* 103 mg/dL (60-115); Total Protein* 7.6 g/dL (6.0-8.3)
[2024-05-23 09:44] LABS: Calcium* 9.3 mg/dL (8.4-10.6); Magnesium* 1.9 mg/dL (1.5-2.6)
[2024-05-24 10:18] VITALS: BP 122/81; PULSE 69; RESP 16; TEMP 35.8; O2SAT 98
[2024-05-24] MEDS: SODIUM CHLORIDE 0.9 % (FLUSH) 10 ML SYRINGE IVF (10:38)
[2024-05-24] MEDS: MAGNESIUM SULFATE 2 GM, POTASSIUM CHLORIDE 10 MEQ in 0.9 % SODIUM CHLORIDE 1000 ml 1,00... IV (10:51)
[2024-05-24] MEDS: 0.9 % SODIUM CHLORIDE 250 ml IV (11:57)
[2024-05-24] MEDS: dexAMETHasone 10 MG in 0.9 % SODIUM CHLORIDE 100 ml 100 ML 400 MG IVPB (11:57)
[2024-05-24] MEDS: PALONOSETRON 0.25 MG/5 ML inj IVP (11:57)
[2024-05-24] MEDS: FOSAPREPITANT 150 MG inj 150 MG in 0.9 % SODIUM CHLORIDE 250 ml 250 ML 510 MG IVPB (12:19)
[2024-05-27 09:37] VITALS: BP 121/84; PULSE 64; RESP 16; TEMP 36.1; O2SAT 100
[2024-05-27] MEDS: SODIUM CHLORIDE 0.9 % (FLUSH) 10 ML SYRINGE IVF (09:47)
[2024-05-27] MEDS: 0.9 % SODIUM CHLORIDE 1000 ml 1,000 ML IV (09:47)
[2024-05-30 09:53] LABS: Basophils Absolute Auto 0.03 K/uL (0.00-0.30); Basophils Percent Auto 0.6 % (0.0-3.0); Eosinophils Absolute Auto 0.04 K/uL (0.00-0.50); Eosinophils Percent Auto 0.8 % (0.0-7.0); Hematocrit 39.4 % (37.0-53.0); Hemoglobin* 13.6 gm/dL (13.5-17.5); Immature Granulocytes Abs Auto 0.01 K/uL (0.00-0.30); Immature Granulocytes Pct Auto 0.2 %; Lymphocytes Percent Auto 4.6 % (20-44); Mean Corpuscular HGB Conc 35 gm/dL (32-36); Mean Corpuscular Hemoglobin 31 pg (26-34); Mean Corpuscular Volume 90 fL (80-100); Monocytes Percent Auto 7.5 % (0.0-11.0); Neutrophils Percent Auto 86.3 % (42.0-72.0); Platelet Count* 123 K/uL (140-440); RDW Coefficient of Variation % 13.1 % (11.5-15.5); Red Blood Count 4.38 m/uL (4.30-5.90); White Blood Count* 4.81 K/uL (4.50-11.00)
[2024-05-30 09:58] LABS: Slide Review Reflex No
[2024-05-30 10:11] LABS: Albumin* 4.8 g/dL (3.3-5.0); Chloride* 101 mmol/L (96-114); Potassium* 4.8 mmol/L (3.6-5.1); Sodium* 135 mmol/L (135-149)
[2024-05-30 10:13] LABS: Anion Gap 12 mEq/L (7-15); Aspartate Amino Transferase* 23 U/L (12-35); Bilirubin Total* 0.6 mg/dL (0.1-1.5); Carbon Dioxide* 22 mmol/L (20-32); Creatinine* 0.8 mg/dL (0.5-1.5); Est. Creatinine Clearance* 99.84; Estimated Glomerular Filt Rate 106 ml/min
[2024-05-30 10:14] LABS: Alanine Aminotransferase* 37 U/L (4-50); Alkaline Phosphatase* 110 U/L (40-150); Blood Urea Nitrogen* 17 mg/dL (7-30); Calcium* 9.7 mg/dL (8.4-10.6); Glucose* 94 mg/dL (60-115); Magnesium* 1.8 mg/dL (1.5-2.6)
[2024-05-30] MEDS: OXYCODONE 5 MG TABLET PO (11:29)
[2024-05-30] MEDS: dexAMETHasone 4 MG/ML VIAL IVP (11:30)
[2024-05-30] MEDS: 0.9 % SODIUM CHLORIDE 1000 ml 1,000 ML IV (11:30)
[2024-05-30] MEDS: SODIUM CHLORIDE 0.9 % (FLUSH) 10 ML SYRINGE IVF (11:30)
--- NOTE | 2024-05-30 12:38 | ONC.NURNOTE ---
Patient attempted to leave stool sample but was unsuccessful. Supplies sent home with instructions on how to collect. Patient stated I feel a lot better after the steroids and fluids.
[2024-05-31 10:48] VITALS: BP 123/86; PULSE 99; RESP 16; TEMP 36.5; O2SAT 98
[2024-05-31] MEDS: SODIUM CHLORIDE 0.9 % (FLUSH) 10 ML SYRINGE IVF (10:50)
[2024-05-31] MEDS: 0.9 % SODIUM CHLORIDE 250 ml IV (10:50)
[2024-05-31] MEDS: MAGNESIUM SULFATE 2 GM, POTASSIUM CHLORIDE 10 MEQ in 0.9 % SODIUM CHLORIDE 1000 ml 1,00... IV (11:00)
[2024-05-31 12:09] LABS: CDIFFEPI 027 PRESUMPTIVE NEGATIVE (Negative)
[2024-05-31 12:16] LABS: C.Difficile POSITIVE (Negative)
--- NOTE | 2024-05-31 12:31 | PC.NURSE ---
C. Diff test positive. Emeli Koo APRN notified. Telma Briceño PA-C notified. Radiation oncology team notified.
--- NOTE | 2024-06-01 09:43 | ONC.NURNOTE ---
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 Pt will see Shahla Briceño PA-C on 06/06/24 to follow up cdiff. Pt verbalized understanding of plan of care.
[2024-06-02 13:59] LABS: Adenovirus PCR Not Detected; Astrovirus PCR Not Detected; Campylobacter PCR Not Detected; Cryptosporidium PCR Not Detected; Cyclospora cayetanensis PCR Not Detected; Entamoeba histolytica PCR Not Detected; Enteroaggregative E coli PCR Not Detected; Enteropathogenic E coli PCR Not Detected; Enterotoxigenic E coli PCR Not Detected; Giardia lamblia PCR Not Detected; Norovirus Gi/GII PCR Not Detected; Plesiomonas shig PCR Not Detected; Rotavirus A PCR Not Detected; Salmonella PCR Not Detected; Sapovirus PCR Not Detected; Shiga toxin E coli PCR Not Detected; Shigella/Enteroinvasive E coli Not Detected; Vibrio PCR Not Detected; Vibrio cholerae PCR Not Detected; Yersinia enterocolitica PCR Not Detected
[2024-06-03 09:20] VITALS: BP 115/83; PULSE 83; RESP 16; TEMP 36.2; O2SAT 98
[2024-06-03] MEDS: 0.9 % SODIUM CHLORIDE 1000 ml 1,000 ML IV (10:21)
[2024-06-03] MEDS: SODIUM CHLORIDE 0.9 % (FLUSH) 10 ML SYRINGE IVF (10:22)
[2024-06-03] MEDS: dexAMETHasone 4 MG/ML VIAL IVP (10:22)
[2024-06-03 16:59] LABS: Ova and Parasite, Fecal Negative (Negative)
[2024-06-05] MEDS: dexAMETHasone 4 MG/ML VIAL 2 MG IV (11:35)
[2024-06-05] MEDS: 0.9 % SODIUM CHLORIDE 1000 ml 1,000 ML IV (11:35)
[2024-06-05 11:39] VITALS: BP 126/78; PULSE 76; RESP 16; TEMP 24.8; O2SAT 99
[2024-06-06 09:01] LABS: Basophils Percent Auto 0.3 % (0.0-3.0); Eosinophils Percent Auto 2.6 % (0.0-7.0); Hematocrit 32.4 % (37.0-53.0); Immature Granulocytes Pct Auto 0.3 %; Lymphocytes Percent Auto 7.8 % (20-44); Mean Corpuscular HGB Conc 34 gm/dL (32-36); Mean Corpuscular Hemoglobin 31 pg (26-34); Mean Corpuscular Volume 92 fL (80-100); Monocytes Percent Auto 10.1 % (0.0-11.0); Neutrophils Percent Auto 78.9 % (42.0-72.0); Platelet Count* 102 K/uL (140-440); RDW Coefficient of Variation % 13.8 % (11.5-15.5); Red Blood Count 3.51 m/uL (4.30-5.90); White Blood Count* 3.47 K/uL (4.50-11.00)
[2024-06-06 09:13] LABS: Slide Review Reflex No
[2024-06-06 09:19] LABS: Albumin* 4.3 g/dL (3.3-5.0); Chloride* 102 mmol/L (96-114); Potassium* 3.4 mmol/L (3.6-5.1); Sodium* 138 mmol/L (135-149)
[2024-06-06 09:21] LABS: Bilirubin Total* 0.4 mg/dL (0.1-1.5); Carbon Dioxide* 26 mmol/L (20-32); Creatinine* 0.7 mg/dL (0.5-1.5); Estimated Glomerular Filt Rate 110 ml/min
[2024-06-06 09:22] LABS: Alanine Aminotransferase* 35 U/L (4-50); Alkaline Phosphatase* 97 U/L (40-150); Anion Gap 10 mEq/L (7-15); Aspartate Amino Transferase* 25 U/L (12-35); Blood Urea Nitrogen* 12 mg/dL (7-30); Calcium* 9.1 mg/dL (8.4-10.6); Glucose* 89 mg/dL (60-115); Total Protein* 7.1 g/dL (6.0-8.3)
[2024-06-06 09:23] LABS: Magnesium* 1.7 mg/dL (1.5-2.6)
[2024-06-07 09:24] VITALS: BP 127/80; PULSE 74; RESP 16; TEMP 36.7; O2SAT 98
[2024-06-07] MEDS: 0.9 % SODIUM CHLORIDE 250 ml IV (09:50)
[2024-06-07] MEDS: SODIUM CHLORIDE 0.9 % (FLUSH) 10 ML SYRINGE IVF (09:50)
[2024-06-07] MEDS: MAGNESIUM SULFATE 2 GM, POTASSIUM CHLORIDE 20 MEQ in 0.9 % SODIUM CHLORIDE 1000 ml 1,00... IV (09:50)
[2024-06-07] MEDS: dexAMETHasone 10 MG in 0.9 % SODIUM CHLORIDE 100 ml 100 ML 400 MG IVPB (11:01)
[2024-06-07] MEDS: PALONOSETRON 0.25 MG/5 ML inj IVP (11:02)
[2024-06-07] MEDS: FOSAPREPITANT 150 MG inj 150 MG in 0.9 % SODIUM CHLORIDE 250 ml 250 ML 510 MG IVPB (11:23)
[2024-06-10 09:38] VITALS: BP 127/85; PULSE 72; RESP 16; TEMP 36.3; O2SAT 98
[2024-06-10] MEDS: 0.9 % SODIUM CHLORIDE 1000 ml 1,000 ML IV (10:15)
[2024-06-10] MEDS: SODIUM CHLORIDE 0.9 % (FLUSH) 10 ML SYRINGE IVF (11:03)
[2024-06-10 11:11] LABS: Chloride* 102 mmol/L (96-114); Potassium* 3.6 mmol/L (3.6-5.1); Sodium* 135 mmol/L (135-149)
[2024-06-10 11:14] LABS: Anion Gap 9 mEq/L (7-15); Blood Urea Nitrogen* 14 mg/dL (7-30); Carbon Dioxide* 24 mmol/L (20-32); Creatinine* 0.7 mg/dL (0.5-1.5); Estimated Glomerular Filt Rate 110 ml/min; Glucose* 73 mg/dL (60-115)
[2024-06-10 11:15] LABS: Calcium* 8.2 mg/dL (8.4-10.6)
--- NOTE | 2024-06-10 11:20 | ONC.NURNOTE ---
Patient stated decreased po intake. unable to take po potassium at home. Serum potassium is 3.6. Pt denies vomiting or diarrhea. Pt states on 2 antinausea meds. States they help some. Pt requesting DEx. IV. Which he states helps even better. Call placed to Emeli Seaman APRN 1L NS given and Dex 4mg IV given with relief. Ca+8.2. Enc. dairy products.
[2024-06-10] MEDS: dexAMETHasone 4 MG/ML VIAL IVP (11:30)
[2024-06-13 10:31] LABS: Basophils Percent Auto 0.9 % (0.0-3.0); Eosinophils Percent Auto 1.3 % (0.0-7.0); Hematocrit 35.6 % (37.0-53.0); Hemoglobin* 12.1 gm/dL (13.5-17.5); Immature Granulocytes Pct Auto 0.4 %; Lymphocytes Percent Auto 7.2 % (20-44); Mean Corpuscular HGB Conc 34 gm/dL (32-36); Mean Corpuscular Hemoglobin 31 pg (26-34); Mean Corpuscular Volume 92 fL (80-100); Monocytes Percent Auto 14.8 % (0.0-11.0); Neutrophils Percent Auto 75.4 % (42.0-72.0); Platelet Count* 165 K/uL (140-440); RDW Coefficient of Variation % 13.8 % (11.5-15.5); Red Blood Count 3.86 m/uL (4.30-5.90); White Blood Count* 2.23 K/uL (4.50-11.00)
[2024-06-13 10:35] LABS: Slide Review Reflex No
[2024-06-13 10:48] LABS: Chloride* 100 mmol/L (96-114); Sodium* 138 mmol/L (135-149)
[2024-06-13 10:49] LABS: Potassium* 3.6 mmol/L (3.6-5.1)
[2024-06-13 10:51] LABS: Alanine Aminotransferase* 24 U/L (4-50); Albumin* 4.5 g/dL (3.3-5.0); Alkaline Phosphatase* 95 U/L (40-150); Anion Gap 12 mEq/L (7-15); Aspartate Amino Transferase* 25 U/L (12-35); Blood Urea Nitrogen* 13 mg/dL (7-30); Calcium* 9.5 mg/dL (8.4-10.6); Carbon Dioxide* 26 mmol/L (20-32); Creatinine* 0.8 mg/dL (0.5-1.5); Est. Creatinine Clearance* 99.84; Estimated Glomerular Filt Rate 106 ml/min
[2024-06-13 10:52] LABS: Glucose* 94 mg/dL (60-115); Magnesium* 1.8 mg/dL (1.5-2.6)
[2024-06-13 10:54] LABS: Bilirubin Total* 0.5 mg/dL (0.1-1.5); Total Protein* 7.5 g/dL (6.0-8.3)
[2024-06-14 09:56] VITALS: BP 117/84; PULSE 84; RESP 16; TEMP 36.6; O2SAT 98
[2024-06-14] MEDS: MAGNESIUM SULFATE 2 GM, POTASSIUM CHLORIDE 10 MEQ in 0.9 % SODIUM CHLORIDE 1000 ml 1,00... IV (10:32)
[2024-06-14] MEDS: dexAMETHasone 10 MG in 0.9 % SODIUM CHLORIDE 100 ml 100 ML 404 MG IVPB (11:30)
[2024-06-14] MEDS: PALONOSETRON 0.25 MG/5 ML inj IVP (11:30)
[2024-06-14] MEDS: FOSAPREPITANT 150 MG inj 150 MG in 0.9 % SODIUM CHLORIDE 250 ml 250 ML 510 MG IVPB (11:55)
--- NOTE | 2024-06-14 13:47 | ONC.NURNOTE ---
Addendum entered by Sandi Gloria RN 06/14/24 14:24: Nadeem has a order for 1 L NS prn. I encouraged him to come in this week. He declined. I encouraged him to call if needing fluid. Original Note: Nadeem is down 8.4 pd. today. He stated he wants to get down to 170. Teaching and encouraging him this is not the time to try loosing weight. This is a time to eat and drink what you can to help the healing process. Did increase his pain meds to fentanyl today for better control.
[2024-06-17 09:15] VITALS: BP 128/82; PULSE 68; RESP 17; TEMP 36; O2SAT 98
[2024-06-17] MEDS: 0.9 % SODIUM CHLORIDE 1000 ml 1,000 ML IV (10:17)
[2024-06-17] MEDS: dexAMETHasone 10 MG/ML inj 4 MG IVP (10:18)
[2024-06-17] MEDS: ONDANSETRON 2 MG/ML inj 8 MG IVP (10:18)
[2024-06-17] MEDS: SODIUM CHLORIDE 0.9 % (FLUSH) 10 ML SYRINGE IVF (10:20)
--- NOTE | 2024-06-21 13:40 | ONC.NURNOTE ---
Arrived with SO and patient shaking and throwing up at same time. Decision was made to go to ED before any VS etc. by SO
--- NOTE | 2024-06-24 10:28 | PC.NURSE ---
Called pt as he did not arrive for his appointment today. Pt is feeling well and doesn't need fluids today. Wished pt well.
== END 2024-10-11 23:59 | disposition home or self-care (01) ==
LOC: CCIC 09:00
PROVIDERS: Clinical Nurse Specialist; Physician Assistant; Visit Provider Internal Medicine Hematology & Oncology
DX: C10.9 Malignant neoplasm of oropharynx, unspecified (principal)
CPT/HCPCS: 36415; 80048; 80051; 80053; 83735; 85025; 87177; 87209; 87493; 87505; 87635; 96360; 96361; 96365; 96366; 96374; 96376; 96413; 96417; 99202; 99205; 99211; 99214; 99215; G0463; A9270; J1100; J1453; J2405; J2469; J3475; J3480; J7030; J7050; J9060